=== PATIENT | female | born 1970 | race Caucasian/White ===

== ENCOUNTER 2023-12-13 08:41 | Outpatient (CLI) | payer BC ==
--- NOTE | 2023-12-13 21:35 | CT Report ---
PROCEDURE: Abdomen/Pelvis WO INDICATIONS: KIDNEY STONE TECHNIQUE: A CT scan of the abdomen and pelvis was performed without the use of intravenous contrast. Images we re recorded and evaluated at appropriate window settings. Reformats: coronal and sagittal. For radiat ion dose reduction, the following was used: automated exposure control, adjustment of mA and/or kV ac cording to patient size. COMPARISON: None. FINDINGS: Image quality: Diagnostic. Lower chest: Unremarkable. Liver: No contour-deforming mass. Gallbladder: No radiopaque stones or wall thickening. Biliary tree: No intrahepatic or extrahepatic dilation, accounting for age. Spleen: No splenomegaly. Pancreas: No pancreatic ductal dilation. Adrenals: No adrenal nodule. Kidneys and ureters: No left hydronephrosis. Left ureter is normal in course and caliber. No contour- deforming mass. There is a 6 mm minimally obstructing distal right ureteral stone measuring approxima tely 850 Hounsfield units in density. This is seen a short distance proximal to the right ureterovesi cular junction. Minimal right hydroureter. No significant hydronephrosis on the right. Stomach, bowel and peritoneum: No gastric or small bowel dilation. No abnormal wall thickening. No pa thologic free fluid. Diverticulosis without evidence of diverticulitis. Normal appendix. Lymph nodes: No central or retroperitoneal adenopathy. Vessels: No infrarenal aortic aneurysm. Reproductive organs: Unremarkable. Bladder: Bladder wall thickness is normal, accounting for underdistention. No calcified bladder stone s. Pelvic lymph nodes: No adenopathy by size criteria. Bones: No aggressive osseous abnormality. Multilevel spondylosis of the imaged spine. No acute compre ssion fractures. Other: No significant ventral or inguinal hernia. IMPRESSION: Minimally obstructing 6 mm distal right ureteral stone measuring approximately 850 Hounsfield units i n density noted a short distance proximal to the right ureterovesicular junction. Minimal right hydro ureter. No right hydronephrosis. Colonic diverticulosis without acute diverticulitis. Normal appendix. Reviewed by: Abad Arnett MD on 12/13/2023 8:34 PM [email or web address] Approved by: Abad Arnett MD on 12/13/2023 8:34 PM AKDT Station ID: [id number]
== END 2023-12-13 08:42 | disposition home or self-care (01) ==
LOC: DI 08:41
PROVIDERS: ATTEND Family Medicine
DX: N13.2 Hydronephrosis with renal and ureteral calculous obstruction (principal); K57.30 Diverticulosis of large intestine without perforation or abscess without bleeding